=== PATIENT | female | born 1970 ===

== ENCOUNTER 2017-05-11 15:35 | Emergency (ER) | payer OTHER ==
[2017-05-11 15:54] VITALS: RESP 18; TEMP 98.9; O2SAT 99; BMI 30.1
--- NOTE | 2017-05-11 16:41 | ED PDOC ---
Arrival/HPI <Darryl De La Fuente - Last Filed: 05/11/17 18:17> <Antoine Ni DO - Last Filed: 05/11/17 22:06> - General Chief Complaint: Abnormal Skin Integrity Time Seen by Provider: 05/11/17 15:55 - History of Present Illness Narrative History of Present Illness (Text): 05/11/17 16:29 Pt is a 46 year old female with past medical history significant for DM2 who complains of fever, itchy skin and joint pain. The patient states she has had a 3 day history of subjective fever. She denies nausea, vomiting, diaphoresis or change in bowel. She denies sick contact or recent travel. She denies taking any medication for her fever symptoms. Pt reports that her skin has been itchy for the past 15 days and located primarily her upper extremities. She has taken hydroxyzine 25mg for her symptoms. She reports the medication offers her some relieve. Patient's joint pain is primarily located in her ankles bilaterally and her right elbow. 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 Patient denies joint pain that moves, easy bleeding, history of RA, recent travel, or history of autoimmune disorders. She denies chest pain, shortness of breath, palpitations nausea vomiting or diarrhea. (Darryl De La Fuente) Past Medical History - Provider Review Nursing Documentation Reviewed: Yes - Infectious Disease Hx of Infectious Diseases: None - Cardiac Hx Cardiac Disorders: No - Pulmonary Hx Respiratory Disorders: No - Neurological Hx Neurological Disorder: No - HEENT Hx HEENT Disorder: No - Renal Hx Renal Disorder: No - Endocrine/Metabolic Hx Endocrine Disorders: Yes Hx Diabetes Mellitus Type 1: No Hx Diabetes Mellitus Type 2: Yes - Hematological/Oncological Hx Blood Disorders: No - Integumentary Hx Dermatological Disorder: No - Musculoskeletal/Rheumatological Hx Musculoskeletal Disorders: No Hx Arthritis: No - Gastrointestinal Hx Gastrointestinal Disorders: No - Genitourinary/Gynecological Hx Genitourinary Disorders: No - Psychiatric Hx Psychophysiologic Disorder: No Hx Substance Use: No - Surgical History Hx Section: Yes (x1) - Anesthesia Hx Anesthesia: Yes Hx Anesthesia Reactions: No Hx Malignant Hyperthermia: No <Darryl De La Fuente - Last Filed: 05/11/17 18:17> Family/Social History - Physician Review Nursing Documentation Reviewed: Yes Family/Social History: No Known Family HX Smoking Status: Never Smoked Hx Alcohol Use: No Hx Substance Use: No <Darryl De La Fuente - Last Filed: 05/11/17 18:17> Allergies/Home Meds <Darryl De La Fuente - Last Filed: 05/11/17 18:17> <Marifermary Antoine MONCADA - Last Filed: 05/11/17 22:06> Allergies/Adverse Reactions: Allergies No Known Allergies Allergy (Verified 05/11/17 15:54) Home Medications: Home Meds Medication Instructions Recorded Confirmed hydrOXYzine HCl [Atarax] 25 mg PO Q6 PRN 05/11/17 05/11/17 Review of Systems - Physician Review All systems were reviewed & negative as marked: Yes - Review of Systems Constitutional: Fatigue Respiratory: absent: SOB Cardiovascular: absent: Chest Pain Musculoskeletal: Arthralgias (ankles and right elbow), Back Pain. absent: Neck Pain Skin: Rash, Pruritis (primarily upper extremities ) <Darryl De La Fuente - Last Filed: 05/11/17 18:17> Physical Exam Vital Signs Reviewed: Yes Temperature: Afebrile Blood Pressure: Normal Pulse: Regular Respiratory Rate: Normal Appearance: Positive for: Well-Appearing Pain Distress: None Mental Status: Positive for: Alert and Oriented X 3 - Systems Exam Head: Present: Atraumatic, Normocephalic Pupils: Present: PERRL Extroacular Muscles: Present: EOMI Conjunctiva: Present: Normal Mouth: Present: Moist Mucous Membranes Neck: Present: Normal Range of Motion. No: Meningeal Signs Respiratory/Chest: Present: Clear to Auscultation, Good Air Exchange. No: Respiratory Distress, Accessory Muscle Use Cardiovascular: Present: Regular Rate and Rhythm, Normal S1, S2. No: Murmurs Abdomen: Present: Normal Bowel Sounds. No: Tenderness, Distention, Peritoneal Signs Upper Extremity: Present: Normal ROM, NORMAL PULSES, Other (urticaria bilateral) . No: Swelling Lower Extremity: Present: CALF TENDERNESS (bilateral to palpation), Normal ROM, Tenderness (ankles bilaterally ), Swelling (ankles bilaterally ), Neurovascularly Intact, Capillary Refill < 2 s. No: Erythema Skin: Present: Other Psychiatric: Present: Alert, Oriented x 3, Normal Insight, Normal Concentration <Darryl De La Fuente - Last Filed: 05/11/17 18:17> Medical Decision Making <Darryl De La Fuente - Last Filed: 05/11/17 18:17> <Antoine Ni DO - Last Filed: 05/11/17 22:06> ED Course and Treatment: 05/11/17 17:00 Impression: Pt is a 46 year old female with past medical history significant for DM2 who presents with a constellation of symptoms of which include generalized fatigue, puritic rash, arthalgia for the past few weeks. She also complains of subjective fever for the past 3 days. Differential Diagnosis included but are not limited to: - Urticaria - Fatigue Plan: - CBC, CMP - IVF, Toradol - Reassess and disposition Progress Notes: (Darryl De La Fuente) 05/11/17 Patient Seen With Resident: In agreement with resident note which contains more details about the patient. Patient was seen and evaluated with resident. Came up with plan and treatment together. (Antoine Ni DO) - Lab Interpretations Lab Results: 05/11/17 17:00 05/11/17 17:00 Lab Results 05/11/17 17:00: Sodium 141, Potassium 3.9, Chloride 104, Carbon Dioxide 29, Anion Gap 12, BUN 17, Creatinine 1.0, Est GFR ( Amer) > 60, Est GFR (Non- Af Amer) > 60, Random Glucose 93, Calcium 9.0, Total Bilirubin 0.5, AST 26, ALT 30, Alkaline Phosphatase 54, Total Protein 7.0, Albumin 3.8, Globulin 3.1, Albumin/Globulin Ratio 1.2 05/11/17 17:00: WBC 8.6, RBC 4.18, Hgb 11.4 L, Hct 35.4 L, MCV 84.7, MCH 27.3, MCHC 32.2, RDW 15.9 H, Plt Count 396, MPV 9.5, Gran % 53.2, Lymph % (Auto) 38.4 H, [place] % (Auto) 5.4, Eos % (Auto) 2.8, Baso % (Auto) 0.2, Gran # 4.55, Lymph # 3.3, [place] # 0.5, Eos # 0.2, Baso # 0.02 - Medication Orders Current Medication Orders: Discontinued Medications Sodium Chloride (Sodium Chloride 0.9%) 250 mls @ 250 mls/hr IV .Q1H MILANA Last Admin: 05/11/17 17:19 Dose: 250 mls/hr Ketorolac Tromethamine (Toradol) 30 mg IVP STAT STA Stop: 05/11/17 16:43 Last Admin: 05/11/17 17:19 Dose: 30 mg - PA / FLIGHT OPERATIONS MANAGER / Resident Statement CAMMY has reviewed & agrees with the documentation as recorded. / has examined the patient and agrees with the treatment plan. <Darryl De La Fuente - Last Filed: 05/11/17 18:17> - Scribe Statement The provider has reviewed the documentation as recorded by the Scribe <Antoine Ni DO - Last Filed: 05/11/17 22:06> - Scribe Statement 05/11/2017 Jayla Ricks Provider Scribe Attestation: All medical record entries made by the Scribe were at my direction and personally dictated by me. I have reviewed the chart and agree that the record accurately reflects my personal performance of the history, physical exam, medical decision making, and the department course for this patient. I have also personally directed, reviewed, and agree with the discharge instructions and disposition. (Antoine Ni DO) Disposition/Present on Arrival - Present on Arrival Any Indicators Present on Arrival: No History of DVT/PE: No History of Uncontrolled Diabetes: No Urinary Catheter: No History of Decub. Ulcer: No History Surgical Site Infection Following: None - Disposition Have Diagnosis and Disposition been Completed?: Yes Disposition Time: 18:00 Patient Plan: Discharge <Darryl De La Fuente - Last Filed: 05/11/17 18:17> <Antoine Ni DO - Last Filed: 05/11/17 22:06> - Disposition Diagnosis: Urticaria, Arthralgia, Musculoskeletal back pain Disposition: HOME/ ROUTINE Condition: GOOD Referrals: PCP,NO [Primary Care Provider] - Follow up with primary Enedelia Rincon APN-C [Advanced Practice Nurse] - Follow up with primary Forms: [employer] ([place]), WORK NOTE
[2017-05-11] MEDS ORDERED: Sodium Chloride 0.9% 250 ML IV SCH (16:42)
[2017-05-11 17:30] LABS: BASO # 0.02 K/mm3 (0.0-2.0); BASO % 0.2 % (0.0-3.0); EOS # 0.2 (0.0-0.7); EOS % 2.8 % (1.5-5.0); GRAN # 4.55 (1.4-6.5); GRAN % 53.2 % (50.0-68.0); HEMOGLOBIN 11.4 gm/dL (12.0-16.0); LYMPH # 3.3 (1.2-3.4); LYMPH % 38.4 % (22.0-35.0); MEAN CELL VOLUME 84.7 fL (80.0-105.0); MEAN CORPUSCULAR HEMOGLOBIN 27.3 pg (25.0-35.0); MEAN CORPUSCULAR HGB CONC 32.2 g/dl (31.0-37.0); MEAN PLATELET VOLUME 9.5 fl (7.0-11.0); MONO # 0.5 (0.1-0.6); MONO % 5.4 % (1.0-6.0); PLATELET COUNT 396 10^3/uL (120.0-450.0); RBC 4.18 10^6/uL (3.5-6.1); RED CELL DISTRIBUTION WIDTH 15.9 % (11.5-14.5); WHITE BLOOD COUNT 8.6 10^3/ul (4.5-11.0)
[2017-05-11 17:45] LABS: ALB/GLOB RATIO 1.2 (1.1-1.8); ALBUMIN 3.8 g/dL (3.0-4.8); ALT/SGPT 30 U/L (7-56); AST/SGOT 26 U/L (15-39); BLOOD UREA NITROGEN 17 mg/dL (7-21); GFR AFRICAN-AMERICAN > 60; GFR NON-AFRICAN AMERICAN > 60
[2017-05-11 18:00] VITALS: BP 107/78; PULSE 69
== END 2017-05-11 18:30 | disposition home or self-care (01) ==
LOC: ED 15:35
DX: L50.9 Urticaria, unspecified (principal); M54.9 Dorsalgia, unspecified; M25.50 Pain in unspecified joint; E11.9 Type 2 diabetes mellitus without complications
CPT/HCPCS: 80053; 85025; 96361; 96374; 99285; J1885

== ENCOUNTER 2017-06-12 20:49 | Emergency (ER) | payer OTHER ==
[2017-06-12 20:49] VITALS: BMI 30.1
--- NOTE | 2017-06-12 21:22 | ED PDOC ---
Arrival/HPI - General Historian: Patient - History of Present Illness Time/Duration: < week Symptom Onset: Gradual Activities at Onset: Rest Context: Home <Fernando Harden - Last Filed: 06/12/17 23:00> <Rosalia Barnes - Last Filed: 06/13/17 00:21> - General Chief Complaint: Medical Clearance Time Seen by Provider: 06/12/17 21:00 - History of Present Illness Narrative History of Present Illness (Text): 06/12/17 21:00 Audelia Driver is a 46 year old female, whose past medical history includes diabetes, who presents to the emergency department complaining of bilateral join pains, knee pain, ankle pain, and mild chest pain for the last few days. Patient states that she was recently seen in the emergency department about 1 month ago but has not followed up with her PMD. Patient denies any specific trauma, fevers, or any other complaint this time. (Fernando Harden) Past Medical History - Provider Review Nursing Documentation Reviewed: Yes - Infectious Disease Hx of Infectious Diseases: None - Reproductive Menopause: No - Cardiac Hx Cardiac Disorders: No - Pulmonary Hx Respiratory Disorders: No - Neurological Hx Neurological Disorder: No - HEENT Hx HEENT Disorder: No - Renal Hx Renal Disorder: No - Endocrine/Metabolic Hx Endocrine Disorders: Yes Hx Diabetes Mellitus Type 1: No Hx Diabetes Mellitus Type 2: Yes - Hematological/Oncological Hx Blood Disorders: No - Integumentary Hx Dermatological Disorder: No - Musculoskeletal/Rheumatological Hx Musculoskeletal Disorders: No Hx Arthritis: No - Gastrointestinal Hx Gastrointestinal Disorders: No - Genitourinary/Gynecological Hx Genitourinary Disorders: No - Psychiatric Hx Psychophysiologic Disorder: No Hx Substance Use: No - Surgical History Hx Section: Yes (x1) - Anesthesia Hx Anesthesia: Yes Hx Anesthesia Reactions: No Hx Malignant Hyperthermia: No <Fernando Harden - Last Filed: 06/12/17 23:00> Family/Social History - Physician Review Nursing Documentation Reviewed: Yes Family/Social History: No Known Family HX Smoking Status: Never Smoked Hx Alcohol Use: No Hx Substance Use: No <Fernando Harden - Last Filed: 06/12/17 23:00> Allergies/Home Meds <Fernando Harden - Last Filed: 06/12/17 23:00> <Rosalia Barnes - Last Filed: 06/13/17 00:21> Allergies/Adverse Reactions: Allergies No Known Allergies Allergy (Verified 05/11/17 15:54) Home Medications: Home Meds Medication Instructions Recorded Confirmed No Known Home Med 06/12/17 06/12/17 Review of Systems - Physician Review All systems were reviewed & negative as marked: Yes - Review of Systems Constitutional: absent: Fevers, Night Sweats Eyes: absent: Vision Changes ENT: absent: Hearing Changes Respiratory: absent: SOB Cardiovascular: Chest Pain Gastrointestinal: absent: Abdominal Pain Genitourinary Female: absent: Dysuria Musculoskeletal: Other (bilateral joint pain, knee pain, ankle pain ) Skin: absent: Rash, Pruritis Neurological: absent: Headache, Dizziness Endocrine: absent: Diaphoresis Hemo/Lymphatic: absent: Adenopathy Psychiatric: absent: Anxiety, Depression <Fernando Harden - Last Filed: 06/12/17 23:00> Physical Exam - Systems Exam Head: Present: Atraumatic, Normocephalic Pupils: Present: PERRL Extroacular Muscles: Present: EOMI Conjunctiva: Present: Normal Mouth: Present: Moist Mucous Membranes Neck: Present: Normal Range of Motion Respiratory/Chest: Present: Clear to Auscultation, Good Air Exchange. No: Respiratory Distress, Accessory Muscle Use Cardiovascular: Present: Regular Rate and Rhythm, Normal S1, S2. No: Murmurs Abdomen: Present: Normal Bowel Sounds. No: Tenderness, Distention, Peritoneal Signs Back: Present: Normal Inspection Upper Extremity: Present: Normal Inspection. No: Cyanosis, Edema Lower Extremity: Present: Normal Inspection. No: Edema Neurological: Present: GCS=15, CN II-XII Intact, Speech Normal Skin: Present: Warm, Dry, Normal Color. No: Rashes Psychiatric: Present: Alert, Oriented x 3, Normal Insight, Normal Concentration <Fernando Harden - Last Filed: 06/12/17 23:00> Medical Decision Making - Lab Interpretations I have reviewed the lab results: Yes <Fernando Harden - Last Filed: 06/12/17 23:00> <Rosalia Barnes A - Last Filed: 06/13/17 00:21> ED Course and Treatment: 06/12/17 21:23 Impression: 46 year old female complaining of bilateral joint pain, knee pain, ankle pain, and mild chest pain for a few days. Differential Diagnosis included but are not limited to: Plan: -- EKG -- Chest X-ray -- LE Ultrasound -- Urinalysis -- Labs -- Tylenol -- Reassess and disposition Prior Visits: Notes and results from previous visits were reviewed. Patient last seen in the ED on 05/11/17 for fever, itchy skin and joint pain that day. Patient was discharged home. Progress Notes: EKG: Ordered, reviewed, and independently interpreted the EKG. Rate : 85 BPM Rhythm : NSR Interpretation : No ST-segment elevations or depressions, no T-wave inversions, normal intervals. 06/12/17 23:00 endorsed to night team. pending ct/us/final dispo (Fernando Harden) 06/13/17 00:15 Patient was signed out to me by Dr. Harden as pending u/s and CTA and discharge if negative. U/s negative for DVT. CTA shows "Mild cardiomegaly, no aneurysm, dissection or pulmonary embolus." Patient reports she feels comfortable going home and will follow-up with PMD 06/13/17 00:19 (Rosalia Barnes) - Lab Interpretations Lab Results: 06/12/17 21:40 06/12/17 21:40 Lab Results 06/12/17 21:40: Sodium 138, Potassium 3.8, Chloride 103, Carbon Dioxide 25, Anion Gap 14, BUN 14, Creatinine 0.8, Est GFR ( Amer) > 60, Est GFR (Non- Af Amer) > 60, Random Glucose 94, Calcium 9.0, Magnesium 1.9, Total Bilirubin < 0.1 L, AST 25, ALT 32, Alkaline Phosphatase 52, Lactate Dehydrogenase 544, Total Creatine Kinase 153, Troponin I < 0.01, Total Protein 6.8, Albumin 3.9, Globulin 2.9, Albumin/Globulin Ratio 1.3 06/12/17 21:40: Urine Color Yellow, Urine Appearance Clear, Urine pH 6.0, Ur Specific [place] 1.025, Urine Protein Negative, Urine Glucose (UA) Negative, Urine Ketones Negative, Urine Blood Moderate H, Urine Nitrate Negative, Urine Bilirubin Negative, Urine Urobilinogen 0.2, Ur Leukocyte Esterase Trace H, Urine RBC 0 - 2, Urine WBC 2 - 5, Ur Epithelial Cells 3 - 4, Urine Bacteria Rare , Urine HCG, Qual Negative 06/12/17 21:40: PT 11.1, INR 1.03, APTT 26.4, D-Dimer, Quantitative 1.59 H 06/12/17 21:40: WBC 8.2, RBC 4.01, Hgb 11.0 L, Hct 34.1 L, MCV 85.0, MCH 27.4, MCHC 32.3, RDW 15.8 H, Plt Count 364, MPV 9.7, Gran % 48.5 L, Lymph % (Auto) 43.1 H, [place] % (Auto) 5.6, Eos % (Auto) 2.6, Baso % (Auto) 0.2, Gran # 3.95, Lymph # 3.5 H, [place] # 0.5, Eos # 0.2, Baso # 0.02 - RAD Interpretation Radiology Orders: 06/12/17 21:17 CHEST PORTABLE [RAD] Stat DUPLEX LOWER EXTRM VEIN BILAT [US] Stat 06/12/17 22:22 ANGIO CHEST PE PROTOCOL [CT] Stat - Medication Orders Current Medication Orders: Discontinued Medications Acetaminophen (Tylenol 325mg Tab) 975 mg PO STAT STA Stop: 06/12/17 21:18 Last Admin: 06/12/17 22:07 Dose: 975 mg Iohexol (Omnipaque 350 100 Ml) Confirm Administered Dose 350 mg .ROUTE .STK-MED ONE Stop: 06/12/17 22:44 - Scribe Statement The provider has reviewed the documentation as recorded by the Scribe <Fernando Harden - Last Filed: 06/12/17 23:00> <Rosalia Barnes - Last Filed: 06/13/17 00:21> - Scribe Statement Rhianna Morse Provider Scribe Attestation: All medical record entries made by the Scribe were at my direction and personally dictated by me. I have reviewed the chart and agree that the record accurately reflects my personal performance of the history, physical exam, medical decision making, and the department course for this patient. I have also personally directed, reviewed, and agree with the discharge instructions and disposition. (Fernando Harden) Disposition/Present on Arrival - Present on Arrival History of DVT/PE: No History of Uncontrolled Diabetes: No Urinary Catheter: No History of Decub. Ulcer: No History Surgical Site Infection Following: None <Fernando Harden - Last Filed: 06/12/17 23:00> - Present on Arrival Any Indicators Present on Arrival: No - Disposition Have Diagnosis and Disposition been Completed?: Yes Disposition Time: 00:20 Patient Plan: Discharge <Rosalia Barnes - Last Filed: 06/13/17 00:21> - Disposition Diagnosis: Myalgia Disposition: HOME/ ROUTINE Patient Problems: Current Active Problems Problem Status Onset Myalgia Acute Condition: GOOD Additional Instructions: Follow up with PMD within 2 days. Return to ED if condition worsens. Referrals: PCP,NO [Primary Care Provider] - Follow up with primary Forms: WORK NOTE
[2017-06-12 21:56] LABS: BASO # 0.02 K/mm3 (0.0-2.0); BASO % 0.2 % (0.0-3.0); EOS # 0.2 (0.0-0.7); EOS % 2.6 % (1.5-5.0); GRAN # 3.95 (1.4-6.5); GRAN % 48.5 % (50.0-68.0); HEMATOCRIT 34.1 % (36.0-48.0); LYMPH # 3.5 (1.2-3.4); LYMPH % 43.1 % (22.0-35.0); MEAN CORPUSCULAR HEMOGLOBIN 27.4 pg (25.0-35.0); MEAN CORPUSCULAR HGB CONC 32.3 g/dl (31.0-37.0); MEAN PLATELET VOLUME 9.7 fl (7.0-11.0); MONO # 0.5 (0.1-0.6); MONO % 5.6 % (1.0-6.0); RED CELL DISTRIBUTION WIDTH 15.8 % (11.5-14.5); WHITE BLOOD COUNT 8.2 10^3/ul (4.5-11.0)
[2017-06-12 21:57] LABS: URINE BILIRUBIN NEGATIVE (NEGATIVE); URINE BLOOD MODERATE (NEGATIVE); URINE GLUCOSE (UA) NEGATIVE (NEGATIVE); URINE KETONE NEGATIVE (NEGATIVE); URINE LEUKOCYTE ESTERASE TRACE Leu/uL (NEGATIVE); URINE PROTEIN NEGATIVE mg/dL (<30 mg/dL); URINE UROBILINOGEN 0.2 E.U./dL (<1 E.U./dL)
[2017-06-12 21:59] LABS: URINE APPEARANCE CLEAR (CLEAR); URINE COLOR YELLOW (YELLOW)
[2017-06-12 22:01] LABS: ALB/GLOB RATIO 1.3 (1.1-1.8); ALKALINE PHOSPHATASE 52 U/L (38-133); ALT/SGPT 32 U/L (7-56); AST/SGOT 25 U/L (15-39); BLOOD UREA NITROGEN 14 mg/dL (7-21); CARBON DIOXIDE 25 mmol/L (21-33); GFR AFRICAN-AMERICAN > 60; GLUCOSE,RANDOM 94 mg/dL (70-110); MAGNESIUM 1.9 mg/dL (1.7-2.2); POTASSIUM 3.8 mmol/L (3.6-5.0); SODIUM 138 mmol/L (132-148); TOTAL PROTEIN 6.8 g/dL (5.8-8.3)
[2017-06-12 22:10] LABS: INR 1.03 (0.93-1.08); PARTIAL THROMBOPLASTIN TIME 26.4 Seconds (23.7-30.8)
[2017-06-12 22:11] LABS: D DIMER 1.59 mg/L FEU (0-0.50)
[2017-06-12 22:13] VITALS: O2SAT 99
[2017-06-12 22:13] LABS: URINE RBC 0 - 2 /hpf (0-2)
[2017-06-12 22:14] LABS: URINE BACTERIA RARE (NEG)
[2017-06-12 22:19] LABS: BILIRUBIN,TOTAL < 0.1 mg/dL (0.2-1.3); TROPONIN I < 0.01 ng/mL
[2017-06-12 22:25] LABS: CHLORIDE 103 mmol/L (98-107)
[2017-06-12] MEDS ORDERED: Iohexol 350 MG/100 ML VIAL ONE (22:43)
--- NOTE | 2017-06-13 00:13 | CT ---
EXAM: CT Angiography Chest With Intravenous Contrast EXAM DATE/TIME: 06/12/2017 10:22 PM CLINICAL HISTORY: 46 years old, female; Abnormal findings; Abnormal diagnostic tests; Elevated d-dimer; Additional info: Cp elevated dimer TECHNIQUE: Axial computed tomographic angiography images of the chest with intravenous contrast using pulmonary embolism protocol. All CT scans at this facility use one or more dose reduction techniques, viz.: automated exposure control; ma/kV adjustment per patient size (including targeted exams where dose is matched to indication; i.e. head); or iterative reconstruction technique. MIP reconstructed images were created and reviewed. Coronal and sagittal reformatted images were created and reviewed. CONTRAST: 96 mL of OMNI 350 administered intravenously. COMPARISON: CT - CHEST W/CONTRAST 12/07/2016 12:48:29 PM FINDINGS: Heart, aorta and Pulmonary arteries: The heart is mildly enlarged.There is trace fluid in pericardial recesses.There is no aneurysm or dissection. There is perfusion of the arch vessels. There are no pulmonary emboli. Lungs and pleural spaces: Motion artifact degrades image quality.Trachea and main bronchi are patent. There is no focal consolidation. There is dependent atelectasis greatest at the left base. There are no effusions. Mediastinum: Esophagus is unremarkable. There is a small hiatal hernia area in no pathologically enlarged mediastinal or hilar nodes. Thyroid: Thyroid is not optimally demonstrated. Bones/joints: There are no acute osseous abnormalities Soft tissues: unremarkable Lymph nodes: There are mildly prominent axillary nodes bilaterally. Upper abdomen: There are no acute abnormalities in the visualized portion of the abdomen. IMPRESSION: Mild cardiomegaly, no aneurysm, dissection or pulmonary embolus
[2017-06-13 00:29] VITALS: BP 115/68; PULSE 71; RESP 18; TEMP 98
--- NOTE | 2017-06-13 08:12 | RAD ---
HISTORY: cp COMPARISON: 01/24/2017 FINDINGS: LUNGS: No active pulmonary disease. PLEURA: No significant pleural effusion identified, no pneumothorax apparent. CARDIOVASCULAR: Normal. OSSEOUS STRUCTURES: No significant abnormalities. VISUALIZED UPPER ABDOMEN: Normal. OTHER FINDINGS: None. IMPRESSION: No active disease.
--- NOTE | 2017-06-13 08:38 | US ---
HISTORY: Leg pain and swelling. Evaluate for DVT PHYSICIAN(S): Sai Rincon MD. TECHNIQUE: Duplex sonography and color-flow Doppler with graded compression were used to evaluate the deep venous systems of both lower extremities. FINDINGS: The visualized deep venous systems of both lower extremities are sonographically normal and compressible. Normal wave forms and augmentation are seen. There is no sonographic evidence for deep venous thrombosis in the visualized segments of both lower extremities. IMPRESSION: No sonographic evidence for deep venous thrombosis in the visualized segments of both lower extremities.
--- NOTE | 2017-06-13 15:30 | CARD ---
APPROVED REPORT EKG Measurement Heart [id number] <Conclusion> Sinus rhythm with occasional premature ventricular complexes Otherwise normal ECG
== END 2017-06-13 00:35 | disposition home or self-care (01) ==
LOC: ED 20:49
DX: M79.1 Myalgia (principal); E11.9 Type 2 diabetes mellitus without complications
CPT/HCPCS: 71010; 71275; 80053; 81001; 82550; 83615; 83735; 84484; 84703; 85025; 85378; 85610; 85730; 87086; 93005; 93970; 99283; Q9967

== ENCOUNTER 2018-10-30 08:57 | Outpatient (CLI) | payer SELFPAY | END 2018-10-30 08:58 | disposition home or self-care (01) | LOC: LAB 08:57 ==

== ENCOUNTER 2019-01-08 08:53 | Outpatient (CLI) | payer SELFPAY | END 2019-01-08 08:54 | disposition home or self-care (01) | LOC: LAB 08:53 ==

== ENCOUNTER 2019-03-02 09:56 | Outpatient (CLI) | payer OTHER | END 2019-03-02 09:57 | disposition home or self-care (01) | LOC: LAB 09:56 ==